=== PATIENT | female | born 1960 | race Two or more races ===

== ENCOUNTER 2016-05-09 13:36 | Day surgery (SDC) | payer OTHER ==
[~2016-05-09] VITALS: Ht 157.5 cm; Wt 99.6 kg
[2016-05-09 15:27] VITALS: Ht 157.5 cm; Wt 99.6 kg
[2016-05-09 15:54] VITALS: BP 142/76; PULSE 83; RESP 18
[2016-05-09] MEDS ORDERED: MIDAZOLAM 1 MG/ML 2 ML INJ ONE ×2 (16:34)
[2016-05-09] MEDS ORDERED: MEPERIDINE 50 MG INJ ONE (16:35)
[2016-05-09] MEDS ORDERED: FENTAnyl 50 MCG/ML VIAL ONE (16:35)
[2016-05-09 16:50] VITALS: BP 102/59; PULSE 85; RESP 18
--- NOTE | 2016-05-09 16:51 | GILP ---
DATE OF PROCEDURE: 05/09/2016 PREOPERATIVE DIAGNOSIS: Screening colonoscopy. POSTOPERATIVE DIAGNOSIS: Scattered diverticula throughout the colon, otherwise, normal colonoscopy. DESCRIPTION OF PROCEDURE: After EGD, further monitoring continued and 1 mg of IV Versed given, 25 m g IV Demerol given. Rectal exam done. Advanced an Olympus video pediatric colonoscope all the way to cecum. Ileocecal valve, appendiceal opening identified. Cecum, ascending colon and transverse co nam normal. Descending colon and sigmoid colon showed some scattered diverticula. There were a few diverticula even in the transverse colon, but not significant and the rectosigmoid was unremarkable . Sigmoid colon and rectum was unremarkable including retroflexion was done which was normal. Scop e was withdrawn. Patient had no complication. Plan will be to await for EGD biopsy report, follow up as outpatient in 2 to 3 weeks. Follow up wit h primary MD also. Dictated By: ANNABEL LOPEZ/TANA Conf#: [id number] DID#: [id number] CC: EFRA SALDIVAR MD;*EndCC*
--- NOTE | 2016-05-12 08:52 | GILP ---
DATE OF PROCEDURE: CC: ____ PREOPERATIVE DIAGNOSIS: Abdominal pain and nausea. POSTOPERATIVE DIAGNOSES: Small hiatal hernia, mild esophagitis, normal stomach, normal duodenum. PROCEDURE DONE: Esophagogastroduodenoscopy and biopsy for H. pylori. DESCRIPTION OF PROCEDURE: The patient was put in left lateral decubitus after obtaining informed co nsent. Posterior pharynx anesthetized with 4% Xylocaine and 3 mg of IV Versed and 75 mcg of fentany l given. Advanced Olympus video upper endoscope into the esophagus, stomach and duodenum. It demon strated evidence of mild esophagitis, a sliding hiatal hernia about 3 cm in size. Stomach was unrem arkable and all the areas fundus, body and antrum, but random biopsy done to rule out H. pylori. Ea sily traversed the scope through the pyloric channel, duodenal bulb and first and second part of the duodenum normal. Scope was withdrawn. Patient had no complication. Plan will be to proceed with colonoscopy, await for biopsy report, follow up as outpatient. Dictated By: ANNABEL VELOZ Conf#: [id number] DID#: [id number]
== END 2016-05-09 19:59 | disposition home or self-care (01) ==
LOC: GIL 13:36
PROVIDERS: ATTEND Internal Medicine
DX: Z12.11 Encounter for screening for malignant neoplasm of colon (principal); K57.30 Diverticulosis of large intestine without perforation or abscess without bleeding; K20.9 Esophagitis, unspecified; K44.9 Diaphragmatic hernia without obstruction or gangrene; E66.01 Morbid (severe) obesity due to excess calories; Z68.41 Body mass index [BMI] 40.0-44.9, adult; E11.9 Type 2 diabetes mellitus without complications; Z79.84 Long term (current) use of oral hypoglycemic drugs; E78.5 Hyperlipidemia, unspecified; E03.9 Hypothyroidism, unspecified; Z90.49 Acquired absence of other specified parts of digestive tract
CPT/HCPCS: 43235; 45378; 88305; 88312; J2175; J2250; J3010; Z7610